=== PATIENT | male | born 1990 | race Caucasian/White ===

== ENCOUNTER 2021-08-13 21:03 | Emergency (ER) | payer SELFPAY ==
[2021-08-13] MEDS ORDERED: HYDROmorphone 1 MG/ML 1 ML SYRINGE IVP STA (21:24)
[2021-08-13] MEDS: DIPH,PERTUS(ACELL)TETVAC-LF 0.5 ML VIAL IM ONE ×2 (21:38→21:42)
[2021-08-13 21:45] LABS: Basophils # (A) 0.1 k/uL (0-0.2); Basophils % (A) 1 %; Eosinophils # (A) 0.1 k/uL (0-0.7); Eosinophils % (A) 2 %; HCT 46.2 % (39.0-53.0); HGB 15.2 gm/dL (13.0-17.5); Lymphocytes # (A) 1.7 k/uL (1.0-4.8); Lymphocytes % (A) 23 %; MCH 29.6 pg (25.0-35.0); MCHC 32.8 g/dL (31.0-37.0); MCV 90.2 fL (80.0-100.0); Mean Platelet Volume 8.5; Monocytes # (A) 0.5 k/uL (0-1.0); Monocytes % (A) 6 %; Neutrophils # (A) 4.9 k/uL (1.3-7.7); Neutrophils % (A) 66 %; Platelet Count 239 k/uL (150-450); RBC 5.13 m/uL (4.30-5.90); RDW 12.1 % (11.5-15.5); WBC 7.3 k/uL (3.8-10.6)
[2021-08-13 21:48] VITALS: RESP 18
--- NOTE | 2021-08-13 21:54 | XR ---
EXAMINATION TYPE: XR ankle complete RT DATE OF EXAM: 08/13/2021 9:42 PM INDICATION: Patient age:Male; 31 years old; Reason for study: open fracture; COMPARISON: None TECHNIQUE: The right ankle is imaged in frontal lateral and oblique projections. FINDINGS: Soft tissue defect projecting over the lateral malleolus soft tissues. No definitive evidence for fra cture. There is soft tissue swelling around right lateral malleolus with subcutaneous lucencies consi stent with gas. No radiopaque foreign bodies. IMPRESSION: Subcutaneous swelling and skin defect immediately adjacent to the distal fibula subcutaneous gas with out evidence of fracture.
[2021-08-13 21:57] LABS: Albumin 5.1 g/dL (3.5-5.0); Calcium 9.9 mg/dL (8.4-10.2); Potassium 3.9 mmol/L (3.5-5.1); Total Bilirubin 0.6 mg/dL (0.2-1.3); Total Protein 8.2 g/dL (6.3-8.2)
--- NOTE | 2021-08-13 23:31 | CT ---
EXAMINATION TYPE: CT lower extremity RT wo con DATE OF EXAM: 08/13/2021 COMPARISON: None HISTORY: PAIN AFTER PT ROLLED ANKLE AND BONE POPPED THRU SKIN CT DLP: 187.7 mGycm Automated exposure control for dose reduction was used. Images obtained from the mid tibia to the bottom of the calcaneus with no contrast. No fracture seen. Ankle mortise is anatomic. There are multiple soft tissue air bubbles around the an kle joint. No definite air seen within the ankle joint. There is soft tissue deformity on the lateral aspect of the ankle consistent with a laceration. No sign of a foreign body. Joint spaces are fairly normal. The talus is intact. The midfoot is intact. Calcaneus appears normal. IMPRESSION: Lateral soft tissue laceration deformity. Multiple soft tissue air bubbles in the subcutaneous tissue s around the ankle and some deeper soft tissue air also present. No fracture seen.
--- NOTE | 2021-08-13 23:50 | ED ---
Lower Extremity Injury HPI - General Chief Complaint: Extremity Injury, Lower Stated Complaint: Rt Ankle Trauma Time Seen by Provider: 08/13/21 21:05 Source: patient Mode of arrival: wheelchair Limitations: no limitations - History of Present Illness Initial Comments: 31-year-old male presents to the emergency department with reported injury to his right ankle. He was playing basketball and went up to do a layup shot. He came down and landed on his lateral malleolus. He saw the bone poking through the skin. Patient suffered a laceration and had significant bleeding. It was wrapped by people on scene. Patient brought in by private vehicle. Did not take anything for pain before coming in. Denies any numbness or tingling in his toes. No other alleviating, precipitating or modifying factors - Related Data Previous Rx's Medication Instructions Recorded HYDROcodone/APAP 7.5-325MG [[place] 1 tab PO Q4HR PRN #18 tab 08/13/21 7.5-325] Cephalexin [Keflex] 500 mg PO Q6HR #20 cap 08/14/21 Allergies Allergy/AdvReac Type Severity Reaction Status Date / Time No Known Allergies Allergy Verified 08/13/21 22:05 Review of Systems ROS Statement: Those systems with pertinent positive or pertinent negative responses have been documented in the HPI. ROS Other: All systems not noted in ROS Statement are negative. Past Medical History Past Medical History: No Reported History History of Any Multi-Drug Resistant Organisms: None Reported Past Surgical History: No Surgical Hx Reported Past Psychological History: No Psychological Hx Reported Smoking Status: Never smoker Past Alcohol Use History: Daily Past Drug Use History: None Reported General Exam Limitations: no limitations General appearance: alert, in no apparent distress Cardiovascular Exam: Present: normal rhythm, tachycardia, normal heart sounds. Absent: systolic murmur, diastolic murmur, rubs, gallop, clicks Extremities exam: Present: other (2.0 cm laceration over lateral malleolus with slow oozing. no obvious deformity. 2+ dp and pt pulses. <2 second cap refill. comparments soft. No knee pain. ) Course Vital Signs 08/13/21 08/13/21 08/14/21 21:04 21:46 00:07 Temperature 98.2 F 97.8 F Pulse Rate 103 H 75 74 Respiratory 20 18 18 Rate Blood Pressure 126/76 143/90 136/78 O2 Sat by Pulse 98 99 98 Oximetry Procedures - Laceration Laceration #1 Consent Obtained: verbal consent Indication: laceration Site: lower extremity Size (cm): 2 Description: linear Depth: simple, single layer Anesthesia Technique: local infiltration Amount (mls): 5 Pre-repair: wound explored, irrigated extensively, deep structures intact Type of Sutures: nylon Size of Sutures: 4-0, 5-0 Number of Sutures: 4 Technique: simple, interrupted Patient Tolerated Procedure: well, no complications - Orthopedic Splinting/Casting Injury #1 Side: right Lower Extremity Injury Location: long leg Lower Extremity Immobilizer: posterior splint, stirrup splint, Conrad wrap, synthetic pre-padded splint Other Orthopedic Equipment: crutches Medical Decision Making - Medical Decision Making On arrival patient is placed in a trauma 4. A thorough history and physical exam was performed. IV access is established. Patient given a dose of Ancef, tetanus and 1 mg of hydromorphone. X-rays are performed which demonstrate no acute fracture but diffuse subcutaneous air. He is sent back for CT which continues to not demonstrate any fractures. I did call in an attempt to speak with orthopedics however they are in the OR. Laceration was repaired. Patient is placed in a posterior and stirrup splint and will be follow-up in the office. Call in the morning for an appointment. Do not ambulate on the extremity. Rest, ice and elevate. Alternate taking Motrin and Tylenol every 4 hours for in control and return for any new or worsening symptoms Upon discharge, I do receive a callback from Tim with orthopedics. Agrees with plan of care. - Lab Data Result diagrams: 08/13/21 21:40 08/13/21 21:40 Lab Results 08/13/21 08/13/21 Range/Units 21:40 21:40 WBC 7.3 (3.8-10.6) k/uL RBC 5.13 (4.30-5.90) m/uL Hgb 15.2 (13.0-17.5) gm/dL Hct 46.2 (39.0-53.0) % MCV 90.2 (80.0-100.0) fL MCH 29.6 (25.0-35.0) pg MCHC 32.8 (31.0-37.0) g/dL RDW 12.1 (11.5-15.5) % Plt Count 239 (150-450) k/uL MPV 8.5 Neutrophils % 66 % Lymphocytes % 23 % Monocytes % 6 % Eosinophils % 2 % Basophils % 1 % Neutrophils # 4.9 (1.3-7.7) k/uL Lymphocytes # 1.7 (1.0-4.8) k/uL Monocytes # 0.5 (0-1.0) k/uL Eosinophils # 0.1 (0-0.7) k/uL Basophils # 0.1 (0-0.2) k/uL Sodium 141 (137-145) mmol/L Potassium 3.9 (3.5-5.1) mmol/L Chloride 104 (98-107) mmol/L Carbon Dioxide 28 (22-30) mmol/L Anion Gap 9 mmol/L BUN 17 (9-20) mg/dL Creatinine 1.37 H (0.66-1.25) mg/dL Est GFR (CKD-EPI)AfAm 80 (>60 ml/min/1.73 sqM) Est GFR (CKD-EPI)NonAf 69 (>60 ml/min/1.73 sqM) Glucose 108 H (74-99) mg/dL Calcium 9.9 (8.4-10.2) mg/dL Total Bilirubin 0.6 (0.2-1.3) mg/dL AST 32 (17-59) U/L ALT 25 (4-49) U/L Alkaline Phosphatase 66 (38-126) U/L Total Protein 8.2 (6.3-8.2) g/dL Albumin 5.1 H (3.5-5.0) g/dL Disposition Clinical Impression: Laceration of ankle Disposition: HOME SELF-CARE Condition: Stable Instructions (If sedation given, give patient instructions): Ankle Sprain (ED), Ankle Stirrup Splint (ED) Additional Instructions: Rest, ice and elevate the extremity. Wear the splint and do not get it wet. Use the crutches to get around. Call in the morning to make an appointment with the orthopedic doctor. Alternate taking Tylenol 650 mg every 4 hours with Motrin 600 mg. If you need something stronger for pain, substitute the [place] for the tylenol. Return for any new or worsening symptoms. Prescriptions: Cephalexin [Keflex] 500 mg PO Q6HR #20 cap HYDROcodone/APAP 7.5-325MG [[place] 7.5-325] 1 tab PO Q4HR PRN #18 tab PRN Reason: Pain Is patient prescribed a controlled substance at d/c from ED?: Yes When asked, does pt state using other controlled substances?: No If prescribed controlled substance>3 days was MAPS reviewed?: Prescribed <3 Days If opioid is for acute pain is fill amount 7 days or less?: Yes Referrals: None,Stated [Primary Care Provider] - 1-2 days Franck Tolbert DO [Doctor of Osteopathic Medicine] - 1-2 days Time of Disposition: 00:00
[2021-08-13] MEDS ORDERED: LIDOCAINE 1% PF 10 MG/ML (5 ML AMP) SQ ONE (23:51)
[2021-08-14 00:09] VITALS: BP 136/78; PULSE 74; TEMP 97.8
== END 2021-08-14 00:59 | disposition home or self-care (01) ==
LOC: EC 21:03
DX: S91.011A Laceration without foreign body, right ankle, initial encounter (principal); W18.30XA Fall on same level, unspecified, initial encounter; Y93.64 Activity, baseball
CPT/HCPCS: 36415; 80053; 85025; 73610; 73700; 99284; 96365; 96375; 12001; J0690; J2001; J1170; 90715